=== PATIENT | female | born 1980 | race Caucasian/White ===

== ENCOUNTER → 2018-11-15 | Outpatient (CLI) | payer OTHER ==
[2018-11-15 14:04] LABS: BASO # 0.1 (0.02-0.10); EOS % 7.7 % (1.0-5.0); HEMATOCRIT 40.9 % (37.0-47.0); HEMOGLOBIN 13.5 g/dL (12.5-16.0); LYMPH# 2.8 (1.50-4.00); MEAN CELL VOLUME 79 fl (78-100); MEAN CORPUSCULAR HEMOGLOBIN 26 pg (27-31); MEAN CORPUSCULAR HGB CONC 33 g/dL (33-37); MEAN PLATELET VOLUME 10.2 fl (7.4-10.4); MONO # 0.9 (0.20-0.80); NEU # 6.4 (1.40-6.50); PLATELET COUNT 362 K/mm3 (130-400); RED BLOOD COUNT 5.15 M/mm3 (4.10-5.30); RED CELL DISTRIBUTION WIDTH 13.2 % (11.5-14.5)
[2018-11-15 14:21] LABS: ALBUMIN 4.1 g/dL (3.5-5.0); CALCIUM 9.6 mg/dL (8.4-10.2); POTASSIUM 4.1 mmol/L (3.6-5.0); TOTAL BILIRUBIN 0.5 mg/dL (0.2-1.3); TOTAL PROTEIN 6.8 g/dL (6.3-8.2)
[2018-11-15 14:52] LABS: EOS # 0.9 (0.04-0.40)
== END ==
LOC: LAB 10:20
PROVIDERS: Nurse Practitioner Family
DX: Z76.89 Persons encountering health services in other specified circumstances (principal); N92.0 Excessive and frequent menstruation with regular cycle; N94.10 Unspecified dyspareunia; N80.9 Endometriosis, unspecified

== ENCOUNTER → 2019-07-04 | Outpatient (CLI) | payer OTHER | LOC: MAMMO 12:15 | DX: R92.2 Inconclusive mammogram (principal) ==

== ENCOUNTER → 2019-07-17 | Outpatient (CLI) | payer OTHER ==
[2019-07-17 09:09] LABS: ALBUMIN 3.9 g/dL (3.5-5.0)
[2019-07-17 09:10] LABS: HEMATOCRIT 41.2 % (37.0-47.0); HEMOGLOBIN 13.4 g/dL (12.5-16.0); MEAN PLATELET VOLUME 9.8 fl (7.4-10.4); POTASSIUM 4.6 mmol/L (3.5-5.1); RED BLOOD COUNT 5.07 M/mm3 (4.10-5.30); SODIUM 138 mmol/L (136-145); WHITE BLOOD COUNT 16.5 K/mm3 (4.8-10.8)
[2019-07-17 09:11] LABS: CALCIUM 9.3 mg/dL (8.3-10.5)
[2019-07-17 09:12] LABS: GLUCOSE 90 mg/dL (65-105); TOTAL PROTEIN 7.2 g/dL (6.4-8.3)
[2019-07-17 09:13] LABS: CARBON DIOXIDE 24 mmol/L (22-29)
[2019-07-17 09:14] LABS: TOTAL BILIRUBIN 0.5 mg/dL (0.2-1.2)
[2019-07-17 09:17] LABS: AST-SGOT 17 U/L (5-34)
[2019-07-17 09:18] LABS: ALT/SGPT 15 U/L (0-55)
[2019-07-17 09:26] LABS: TROPONIN-I < 0.03 ng/mL (<0.030)
== END ==
LOC: AMSURD 08:23 → LAB 08:23
PROVIDERS: Nurse Practitioner
DX: R07.89 Other chest pain (principal)

== ENCOUNTER → 2019-07-31 | Outpatient (CLI) | payer OTHER | LOC: RAD 18:52 | DX: R05 Cough (principal) ==

== ENCOUNTER → 2021-03-15 | Outpatient (CLI) | payer OTHER ==
[2021-03-15 09:43] LABS: BASO # 0.09 (0.02-0.10); EOS # 0.45 (0.04-0.40); EOS % 4.7 % (1.0-5.0); HEMATOCRIT 40.7 % (37.0-47.0); HEMOGLOBIN 13.3 g/dL (12.5-16.0); LYMPH# 2.65 (1.50-4.00); MEAN CELL VOLUME 83 fl (78-100); MEAN CORPUSCULAR HEMOGLOBIN 27 pg (27-31); MEAN CORPUSCULAR HGB CONC 33 g/dL (33-37); MEAN PLATELET VOLUME 8.7 fl (7.4-10.4); MONO # 0.65 (0.20-0.80); NEU # 5.67 (1.40-6.50); PLATELET COUNT 313 K/mm3 (130-400); RED CELL DISTRIBUTION WIDTH 12.3 % (11.5-14.5); WHITE BLOOD COUNT 9.6 K/mm3 (4.8-10.8)
[2021-03-15 09:59] LABS: ALBUMIN 3.9 g/dL (3.5-5.0); POTASSIUM 4.1 mmol/L (3.5-5.1)
[2021-03-15 10:01] LABS: CALCIUM 8.9 mg/dL (8.3-10.5)
[2021-03-15 10:02] LABS: TOTAL PROTEIN 6.8 g/dL (6.4-8.3)
[2021-03-15 10:04] LABS: TOTAL BILIRUBIN 0.5 mg/dL (0.2-1.2)
== END ==
LOC: LAB 09:03
PROVIDERS: Family Medicine
DX: Z00.00 Encounter for general adult medical examination without abnormal findings (principal); E03.9 Hypothyroidism, unspecified; E78.5 Hyperlipidemia, unspecified

== ENCOUNTER → 2021-04-26 | Outpatient (CLI) | payer OTHER ==
[2021-04-28 07:28] LABS: BAKERS YEAST ALLERGEN COUNT <0.10 kU/L (()); CORN ALLERGEN COUNT <0.10 kU/L (()); EGG WHITE ALLERGEN COUNT <0.10 kU/L (()); MILK ALLERGEN COUNT <0.10 kU/L (()); RICE ALLERGEN COUNT <0.10 kU/L (()); TOMATO ALLERGEN COUNT <0.10 kU/L (())
[2021-04-28 07:29] LABS: ASPERGILLUS FUMIGATUS AL COUNT <0.10 kU/L (()); BERMUDA GRASS ALLERGEN COUNT <0.10 kU/L (()); BOX ELDER-MAPLE ALLERGEN COUNT <0.10 kU/L (()); CAT DANDER ALLERGEN COUNT <0.10 kU/L (()); CLADOSPORIUM ALLERGEN COUNT <0.10 kU/L (()); COCKROACH ALLERGEN COUNT <0.10 kU/L (()); COTTONWOOD TREE ALLERGEN COUNT <0.10 kU/L (()); DOG DANDER ALLERGEN COUNT 0.23 kU/L (()); DUST MITES (D.F.) ALLERG COUNT <0.10 kU/L (()); DUST MITES (D.P.) ALLERG COUNT <0.10 kU/L (()); ELM TREE ALLERGEN COUNT <0.10 kU/L (()); FIREBUSH ALLERGEN COUNT <0.10 kU/L (()); OAK ALLERGEN COUNT <0.10 kU/L (()); ORANGE ALLERGEN COUNT <0.10 kU/L (()); PEANUT ALLERGEN COUNT <0.10 kU/L (()); ROUGH MARSH ELDER ALLERG COUNT <0.10 kU/L (()); RUSSIAN THISTLE ALLERGEN COUNT <0.10 kU/L (()); SHORT RAGWEED ALLERGEN COUNT <0.10 kU/L (()); SOYBEAN ALLERGEN COUNT <0.10 kU/L (()); STRAWBERRY ALLERGEN COUNT <0.10 kU/L (()); WHEAT ALLERGEN COUNT <0.10 kU/L (())
[2021-04-30 06:28] LABS: ALTERNARIA TENUIS CNT <0.10 kU/L (())
== END ==
LOC: LAB 10:57
PROVIDERS: Family Medicine
DX: T78.2XXD Anaphylactic shock, unspecified, subsequent encounter (principal)

== ENCOUNTER 2022-05-07 01:29 | Emergency (ER) | payer OTHER ==
[2022-05-07 02:30] VITALS: BP 110/70
== END 2022-05-07 02:30 | disposition home or self-care (01) ==
LOC: ED 01:29
DX: H60.501 Unspecified acute noninfective otitis externa, right ear (principal); Z88.0 Allergy status to penicillin; Z28.310 Unvaccinated for COVID-19

== ENCOUNTER → 2022-08-01 | Outpatient (CLI) | payer OTHER | LOC: LAB 16:21 | DX: R50.9 Fever, unspecified (principal); R07.89 Other chest pain; Z20.822 Contact with and (suspected) exposure to COVID-19 ==

== ENCOUNTER → 2023-12-21 | Outpatient (CLI) | payer OTHER ==
[~2023-12-21] MED LIST: VOLTAREN 75 DR75 MG PO
== END ==
LOC: MAMMO 13:21
DX: Z12.31 Encounter for screening mammogram for malignant neoplasm of breast (principal)